=== PATIENT | male | born 1995 | race American Indian/Alaskan Native ===

== ENCOUNTER 2019-09-14 01:08 | Emergency (ER) | payer SELFPAY ==
--- NOTE | 2019-09-14 01:43 | Emergency Department Report ---
ED General Adult HPI - General Chief complaint: Nausea/Vomiting/Diarrhea Stated complaint: INHALED VOMITED Time Seen by Provider: 09/14/19 01:39 Source: patient, RN notes reviewed Mode of arrival: Ambulatory Limitations: No Limitations - History of Present Illness Initial comments: This is a 24-year-old gentleman. This patient is not known to this provider previously. The patient presents to the ER with a complaint of concern that he may have vomited during his sleep. He denies physical pain at this time. He denies shortness of breath at this time. He has a nonproductive cough. He denies DVT and pulmonary embolism risk factors. He denies additional concerns and complaints. He is speaking on a cellular phone at this time, also noted to be sending text messages and is no acute distress -: Sudden Improves with: none Worsens with: none Associated Symptoms: cough - Related Data Allergies Allergy/AdvReac Type Severity Reaction Status Date / Time No Known Allergies Allergy Verified 09/14/19 01:14 ED Review of Systems ROS: Stated complaint: INHALED VOMITED Other details as noted in HPI Constitutional: denies: fever Eyes: denies: eye discharge ENT: congestion Respiratory: cough Cardiovascular: denies: syncope Gastrointestinal: as per HPI Musculoskeletal: denies: back pain Psychiatric: anxiety ED Past Medical Hx - Past Medical History Previous Medical History?: No - Surgical History Past Surgical History?: No - Social History Smoking Status: Never Smoker Substance Use Type: None ED Physical Exam - General Limitations: No Limitations General appearance: alert, in no apparent distress, obese - Head Head exam: Present: atraumatic, normocephalic - Eye Eye exam: Present: normal appearance, EOMI. Absent: nystagmus - ENT ENT exam: Present: normal exam, normal orophraynx, mucous membranes moist, normal external ear exam - Neck Neck exam: Present: normal inspection, full ROM. Absent: tenderness, meningismus - Respiratory Respiratory exam: Present: decreased breath sounds. Absent: respiratory distress, wheezes, rales, rhonchi, stridor - Cardiovascular Cardiovascular Exam: Present: regular rate, normal rhythm, normal heart sounds. Absent: bradycardia, tachycardia, irregular rhythm, systolic murmur, diastolic murmur, rubs, gallop - GI/Abdominal GI/Abdominal exam: Present: soft. Absent: distended, tenderness, guarding, rigid, pulsatile mass - Rectal Rectal exam: Present: deferred - Extremities Exam Extremities exam: Present: normal inspection, full ROM, other (2+ pulses noted in the bilateral upper, lower extremities. There is no long bone tenderness. Musculoskeletal compartments are soft. The pelvis is stable.). Absent: pedal edema, calf tenderness - Back Exam Back exam: Present: normal inspection, full ROM. Absent: tenderness, CVA tenderness (R), CVA tenderness (L), paraspinal tenderness, vertebral tenderness - Neurological Exam Neurological exam: Present: alert, normal gait, other (there is no facial droop. The tongue is midline. Extraocular movements are intact bilaterally. Patient speaking in full complete sentences. Shoulder shrug is intact bilaterally. Hearing is grossly intact bilaterally. Visual acuity intact to finger counting and color perception at a close distance. 5/5 strength 4 extremities. Sensatio n intact to light touch in 4 extremities.). Absent: motor sensory deficit - Psychiatric Psychiatric exam: Present: anxious - Skin Skin exam: Present: warm, dry, intact, normal color. Absent: rash ED Course Vital Signs 09/14/19 09/14/19 01:16 03:40 Temperature 98.8 F Pulse Rate 89 79 Respiratory 18 18 Rate Blood Pressure 162/97 Blood Pressure 155/86 [Right] O2 Sat by Pulse 98 96 Oximetry - Reevaluation(s) Reevaluation #1: 09/14/19 02:12 Differential diagnosis, including not limited to: Bronchitis, pneumonia, aspiration, sleep apnea, feared complaint unfounded 24-year-old gentleman with a complaint of possible nausea and vomiting while sleeping. He is afebrile with reassuring vital signs. Saturating well on room air. Has no focal pulmonary findings. Speaking on a cell phone, and in no ac [place] distress. X-ray the chest, interpreted by myself, negative for acute disease. The patient does not appear to have an emergent medical condition at this time. Reassurance is provided. ED Medical Decision Making - Lab Data Vital Signs 09/14/19 01:16 Temperature 98.8 F Pulse Rate 89 Respiratory 18 Rate Blood Pressure 162/97 O2 Sat by Pulse 98 Oximetry - Radiology Data Radiology results: pending, image reviewed interpreted by me: X-ray the chest, interpreted by myself, negative for acute disease Critical care attestation.: If time is entered above; I have spent that time in minutes in the direct care of this critically ill patient, excluding procedure time. ED Disposition Clinical Impression: General medical exam Disposition: DC-01 TO HOME OR SELFCARE Is pt being admited?: No Does the pt Need Aspirin: No Condition: Stable Additional Instructions: Please follow-up with the primary care doctor within the next month. Return to the emergency room right away with projectile vomiting, change in mental status, confusion, or any new, worsened or different symptoms not present on the initial emergency room evaluation. Referrals: [facility] [Provider Group] - as needed [facility] [Provider Group] - as needed Forms: Work/School Release Form(ED)
[2019-09-14 03:42] VITALS: BP 155/86
--- NOTE | 2019-09-14 05:29 | XRay Report ---
CHEST 2 VIEWS 0148 INDICATION / CLINICAL INFORMATION: possible inhalation of vomit COMPARISON: None available. FINDINGS: SUPPORT DEVICES: None. HEART / MEDIASTINUM: No significant abnormality. LUNGS / PLEURA: No significant pulmonary or pleural abnormality. No pneumothorax. ADDITIONAL FINDINGS: No significant additional findings. IMPRESSION: No significant acute abnormality Signer Name: Raul Myers MD Signed: 09/14/2019 5:25 AM Workstation Name: [id number]
== END 2019-09-14 03:40 | disposition home or self-care (01) ==
LOC: ED 01:08
DX: R11.10 Vomiting, unspecified (principal); R05 Cough
CPT/HCPCS: 71046